=== PATIENT | male | born 1965 | race Hispanic/Latino ===

== ENCOUNTER 2018-03-17 18:31 | Emergency (ER) | payer OTHER ==
[~2018-03-17] VITALS: Ht 175.3 cm; Wt 73.9 kg
[2018-03-17 19:08] LABS: PLATELET COUNT 225 K/uL (142-355)
[2018-03-17 19:22] LABS: POTASSIUM 3.6 mmol/L (3.6-5.2); SODIUM 140 mmol/L (136-145)
[2018-03-17 23:20] VITALS: BP 146/96; TEMP 97.2
== END 2018-03-17 22:57 | disposition short-term general hospital (02) ==
LOC: ED 18:31
PROVIDERS: Family Medicine
DX: K80.10 Calculus of gallbladder with chronic cholecystitis without obstruction (principal)
CPT/HCPCS: 36415; 74022; 80053; 81000; 82150; 82550; 82553; 83690; 83880; 84443; 84484; 85027; 85379; 93005; 96361; 96365; 96374; 96375; 99285; J1170; J1885; J2270; J2405; J3490; Q9963